=== PATIENT | male | born 1995 | race Caucasian/White ===

== ENCOUNTER 2022-01-06 17:36 | Emergency (ER) | payer BC, OTHER ==
[~2022-01-06] VITALS: Ht 175.3 cm; Wt 77.3 kg
[2022-01-06 18:00] VITALS: BP 147/75
[2022-01-06] MEDS ORDERED: LIDOcaine 1% W/epiNEPHrine 1:200,000 10ml vial IJ ONE (18:15)
== END 2022-01-06 18:52 | disposition home or self-care (01) ==
LOC: ER 17:37
DX: S01.01XA Laceration without foreign body of scalp, initial encounter (principal); W22.8XXA Striking against or struck by other objects, initial encounter; Y93.89 Activity, other specified; Y92.89 Other specified places as the place of occurrence of the external cause; Y99.8 Other external cause status
CPT/HCPCS: 12001; 99282